=== PATIENT | male | born 1960 | race African-American/Black ===

== ENCOUNTER 2018-08-25 11:08 | Emergency (ER) | payer OTHER ==
[~2018-08-25] VITALS: Ht 190.5 cm; Wt 106.6 kg
[~2018-08-25 11:08] MED LIST: ATENOLOL; COLCHICINE0.6 M1 PO; IBUPROFEN600 MG ORAL; IMITREX25 MG PO; LISINOPRIL2.5 MG ORAL; VICODIN 5-3001 EACH ORAL
[2018-08-25] MEDS ORDERED: AUGMENTIN 875-1 EAC1 ORAL (11:38)
[2018-08-25] MEDS ORDERED: IBUPROFEN600 MG ORAL (11:38)
[2018-08-25 12:57] VITALS: BP 157/89
--- NOTE | 2018-08-25 14:28 | Emergency Room Report ---
History of Present Illness General Chief Complaint: Lower Extremity Injury Source: Patient Present Illness [facility] The patient 58-year-old male presented after increased discharge from his right foot. Patient prior history of chronic nonhealing ulcer. Patient had reportedly had previous to debridement. Patient had attempted to see is a train planner without any success. Patient had denies history of diabetes. Patient is currently a smoker. He denies any fever. Allergies: Coded Allergies: No Known Allergies (Unverified , 12/02/79) Patient History Social History: Reports: smoking Reviewed Nursing Documentation: PMH: Agreed; PSxH: Agreed Nursing Documentation-PMH Past Medical History: No History, Except For Hx Hypertension: Yes Review of Systems All Other Systems: negative except mentioned in HPI Physical Exam Vital Signs Date Time Temp Pulse Resp B/P (MAP) Pulse Ox O2 Delivery O2 Flow Rate FiO2 08/25/18 11:20 99.0 107 18 167/100 95 Room Air General Appearance: well appearing, no apparent distress, alert, GCS 15 Head: normocephalic, atraumatic ENT: hearing grossly normal, normal voice Neck: full range of motion, supple Respiratory: no respiratory distress, speaking full sentences Musculoskeletal: no calf tenderness Neurologic: normal gait Psychiatric: mood/affect normal Skin: other - plantar ulceration right foot, no erythema, pulse normal Medical Decision Making Diagnostic Impression: Primary Impression: Right foot infection ER Course Patient is a for foot ulcer. The differential diagnosis included was not limited to abscess, cellulitis, osteomyelitis among others. Patient has a benign exam and does not appear to require any further imaging or laboratory testing at this time. The patient is advised follow-up with his physician for wound recheck. Patient given prescription for oral antibiotics. The patient was advised to recheck if he began having increased fever discharge or other concerns. Last Vital Signs Date Time Temp Pulse Resp B/P (MAP) Pulse Ox O2 Delivery O2 Flow Rate FiO2 08/25/18 12:57 99.0 18 157/89 95 Room Air 08/25/18 11:20 107 Status: improved Disposition: HOME, SELF-CARE Condition: Stable Scripts Ibuprofen* (MOTRIN*) 600 Mg Tablet 600 MG ORAL Q8H PRN for For Pain, #30 TAB 0 Refills Prov: Jasson Rowan MD 08/25/18 Amoxicillin/Potassium Clav 875-125* (AUGMENTIN 875-125 TABLET*) 1 Each Tablet 1 TAB ORAL TWICE A DAY, #14 TAB Prov: Jasson Rowan MD 08/25/18 [facility]P) Patient Instructions: Skin Ulcer Jasson Rowan MD Aug 25, 2018 14:28
== END 2018-08-25 12:59 | disposition home or self-care (01) ==
LOC: EMR 11:57
DX: L97.518 Non-pressure chronic ulcer of other part of right foot with other specified severity (principal); Z72.0 Tobacco use
CPT/HCPCS: 99283

== ENCOUNTER 2018-10-14 03:47 | Emergency (ER) | payer OTHER ==
[~2018-10-14] VITALS: Ht 182.9 cm; Wt 104.3 kg
[~2018-10-14 03:47] MED LIST changes: +AUGMENTIN 875-1 EAC1 ORAL
--- NOTE | 2018-10-14 03:53 | Emergency Room Report ---
History of Present Illness General Chief Complaint: Altered Mental Status Source: Patient, Medical Record, EMS Present Illness HPI This is a 58-year-old male brought in by EMS for altered mental status. Family called 911 because he was out on the porch "tripping.". On arrival EMS that he was not responding. Here he admits to using "shroom." He has a history of PCP , cocaine, opiate abuse. Unable to get any other history on this patient because of his condition. He is very sleepy. Allergies: Coded Allergies: No Known Allergies (Unverified , 12/02/79) Patient History Past Medical History: see triage record, old chart reviewed Past Surgical History: other - Craniotomy Pertinent Family History: none Social History: Reports: smoking, alcohol use, drug use Immunizations: other Reviewed Nursing Documentation: PMH: Agreed; PSxH: Agreed Nursing Documentation-PMH Past Medical History: No History, Except For Hx Hypertension: Yes Hx Cancer: Yes - Liver CA Review of Systems All Other Systems: limited - Secondary to his condition Physical Exam Vital Signs Date Time Temp Pulse Resp B/P (MAP) Pulse Ox O2 Delivery O2 Flow Rate FiO2 10/14/18 03:40 99.1 100 20 162/102 96 Room Air vitals with high blood pressure Sp02 EP Interpretation: reviewed, normal General Appearance: well appearing, no apparent distress, Stupor Head: other - Craniotomy scar Eyes: bilateral eye other - pupils 2-3 mm and reactive ENT: hearing grossly normal, normal pharynx Neck: full range of motion, supple, no meningismus Respiratory: chest non-tender, lungs clear, normal breath sounds Cardiovascular #1: regular rate, rhythm, no murmur Gastrointestinal: normal bowel sounds, non tender, no mass, no organomegaly, no bruit, non-distended Musculoskeletal: back normal, normal range of motion Neurologic: grossly normal Skin: warm/dry Medical Decision Making Diagnostic Impression: Primary Impression: Altered mental status Qualified Codes: R41.82 - Altered mental status, unspecified Additional Impression: Substance abuse ER Course Patient with altered mental status secondary to drug abuse. He slowly waking up. No response to Narcan. No trauma or bleed. We'll discharge home once clinically sober. CT/MRI/US Diagnostic Results CT/MRI/US Diagnostic Results : Imaging Test Ordered: CT head Impression negative per radiologist Last Vital Signs Date Time Temp Pulse Resp B/P (MAP) Pulse Ox O2 Delivery O2 Flow Rate FiO2 10/14/18 03:40 99.1 100 20 162/102 96 Room Air Status: improved Disposition: HOME, SELF-CARE Condition: Stable Additional Instructions: Stop using drugs. Follow-up with rehabilitation within a week. Follow-up with your doctor in a week. Return if worse. Roby Valderrama MD Oct 14, 2018 03:53
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
[2018-10-14 04:00] VITALS: BP 162/102
[2018-10-14] MEDS ORDERED: Naloxone 1mg/ml 2ml IVP ONE (04:00)
--- NOTE | 2018-10-14 04:06 | NUR ---
ED Nurse Note: Narcan given, no acute change in LOC.
--- NOTE | 2018-10-14 04:44 | NUR ---
ED Nurse Note: Patient sleeping, snoring loudly. Patient going down for CT of the head.
[2018-10-14 05:03] VITALS: BP 162/98
--- NOTE | 2018-10-14 05:55 | Diagnostic Imaging Report ---
EXAM: CT Head Without Intravenous Contrast CLINICAL HISTORY: AMS TECHNIQUE: Axial computed tomography images of the head/brain without intravenous contrast. CTDI is 70.38 mGy and DLP is 1453 mGy-cm. One or more of the following dose reduction techniques were used: automated exposure control, adjustment of the mA and/or kV according to patient size, use of iterative reconstruction technique. COMPARISON: 10/16/15 FINDINGS: Artifacts: Motion artifact degrade image quality. Brain: No acute intracranial hemorrhage. No significant white matter disease. Midline shift: No midline shift. Ventricles: Unremarkable. No ventriculomegaly. Bones/joints: Stable postsurgical changes status post left frontal craniotomy. No acute fracture. Soft tissues: Unremarkable. Vasculature: Aneurysm coils creased streak artifact and limit evaluation. Sinuses: Mild mucosal thickening in the ethmoid sinuses. Mastoid air cells: Unremarkable as visualized. No mastoid effusion. IMPRESSION: No acute intracranial abnormality.
--- NOTE | 2018-10-14 06:03 | NUR ---
ED Nurse Note: Patient was arousable to voice, able to state his name, reported no pain at this time. Patient went back to sleep. Vss.
[2018-10-14 06:07] VITALS: BP 159/90
[2018-10-14 07:15] VITALS: BP 134/71
--- NOTE | 2018-10-14 07:23 | NUR ---
ED Nurse Note: Pt was [facility]. Pt AAO x 4 and verbalized address of his home. Pt is VSS and recieved discharge instruction. Pt verbalized understanding. Pt ambulated to the bathroom with stable gait prior to discharge and be discharged to home.
== END 2018-10-14 07:15 | disposition home or self-care (01) ==
LOC: EDBD 03:47 → EMR 03:56
DX: R41.82 Altered mental status, unspecified (principal); F16.10 Hallucinogen abuse, uncomplicated; I10 Essential (primary) hypertension; Z85.05 Personal history of malignant neoplasm of liver
CPT/HCPCS: 36415; 70450; 80307; 80329; 96374; 99284; J2310

== ENCOUNTER 2019-06-30 04:02 | Emergency (ER) | payer OTHER ==
[~2019-06-30] VITALS: Ht 188 cm; Wt 90.7 kg
--- NOTE | 2019-06-30 04:04 | NUR ---
ED Nurse Note: Pt brought in by ambulance [facility] from [facility], pt c/o 05/12 headache pain, denies trauma or N/V. Pt is A&Ox4, VSS
[2019-06-30 04:08] VITALS: BP 148/88
--- NOTE | 2019-06-30 04:08 | Emergency Room Report ---
History of Present Illness General Source: Patient Present Illness HPI Patient presents with complaints of headache Reports the headache came on progressively over the past day Denies any fevers or chills denies any neck pain denies any photophobia Denies any chest pain or shortness of breath Patient reports using cocaine earlier today Denies any focal weakness denies any recent trauma Allergies: Coded Allergies: No Known Allergies (Unverified , 12/02/79) Patient History Past Medical History: see triage record Reviewed Nursing Documentation: PMH: Agreed; PSxH: Agreed Nursing Documentation-PMH Hx Hypertension: Yes Hx Cancer: Yes - Liver CA Review of Systems All Other Systems: negative except mentioned in HPI Physical Exam 98% on room air which is normal Sp02 EP Interpretation: reviewed, normal General Appearance: well appearing, no apparent distress Head: normocephalic, atraumatic Eyes: bilateral eye PERRL, bilateral eye EOMI ENT: hearing grossly normal, normal pharynx, TMs + canals normal, uvula midline Neck: full range of motion, supple, no meningismus, no bony tend Respiratory: lungs clear, normal breath sounds, no rhonchi, no respiratory distress, no retraction, no accessory muscle use Cardiovascular #1: normal peripheral pulses, regular rate, rhythm, no edema, no gallop, no JVD, no murmur Gastrointestinal: normal bowel sounds, non tender, soft, no mass, no organomegaly, non-distended, no guarding, no hernia, no pulsatile mass, no rebound Genitourinary: no CVA tenderness Musculoskeletal: normal inspection Neurologic: oriented x3, responsive, taproom attendant III-XII nml as tested, motor strength/ tone normal, sensory intact Psychiatric: mood/affect normal Skin: no rash Lymphatic: normal inspection, no adenopathy Medical Decision Making Diagnostic Impression: Primary Impression: Headache ER Course Multiple differentials including but not limited to neurological, neurosurgical , infectious pathology entertained Patient appears calm and Appropriate upon arrival is provided with initial pain medication Patient slept comfortably for several hours continues not to be any signs of neurological deficit Or other acute presentation requiring further imaging or work-up patient is stable for close outpatient follow-up Status: improved Disposition: HOME, SELF-CARE Condition: Improved Additional Instructions: Patient is provided with the discharge instructions notified to follow up with primary doctor in the next 2-3 days otherwise return to the er with any worsening symptoms. Please note that this report is being documented using [employer] technology. This can lead to erroneous entry secondary to incorrect interpretation by the dictating instrument. Melvin Stephen DO Jun 30, 2019 04:07
[2019-06-30 05:57] VITALS: BP 148/88
--- NOTE | 2019-06-30 05:58 | NUR ---
ED Nurse Note: Pt cleared by health care Provider for discharge. DC instructions/prescription was given and explained to pt and verbalized understanding of teachings. All medical deviecs such as ID band removed. Pt is AAO x4, ambulatory and left with all personal belongings.
== END 2019-06-30 05:58 | disposition home or self-care (01) ==
LOC: EDBD 04:02 → EDUNIT# 04:02 → EMR 04:13
DX: R51 Headache (principal); I10 Essential (primary) hypertension; Z85.05 Personal history of malignant neoplasm of liver; F14.10 Cocaine abuse, uncomplicated
CPT/HCPCS: 99283

== ENCOUNTER 2019-10-08 13:05 | Emergency (ER) | payer OTHER ==
[~2019-10-08] VITALS: Ht 190.5 cm; Wt 102.1 kg
[2019-10-08 14:00] VITALS: BP 138/81
--- NOTE | 2019-10-08 14:05 | NUR ---
ED Nurse Note:pt. came with right foot chronic infection
[2019-10-08] MEDS ORDERED: AUGMENTIN 875-1 EAC1 ORAL (14:35)
--- NOTE | 2019-10-08 14:40 | NUR ---
ER DISCHARGE NOTE: Patient is cleared to be discharged per ERMD, pt is aox4, on room air, with stable vital signs. pt was given dc and prescription instructions, pt was able to verbalize understanding pt is able to ambulate with steady gait. pt took all belongings.
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
[2019-10-08 15:06] VITALS: BP 138/81
--- NOTE | 2019-10-08 22:28 | Emergency Room Report ---
History of Present Illness General Chief Complaint: General Complaint Source: Patient, Medical Record, PMD Present Illness HPI 59-year-old male presents ED for evaluation. Patient presenting for evaluation of right foot wound. History of foot drop and a wound to his right foot. Was recently discharged from [facility] with a wound VAC. States that due to his living situation he was unable to properly apply the wound VAC. Denies pain. Denies fevers or chills. Denies any drainage. No other aggravating relieving factors. Denies any other associated symptoms Allergies: Coded Allergies: No Known Allergies (Unverified , 12/02/79) Patient History Past Medical History: HTN, CVA/TIA, other - liver ca Pertinent Family History: none Social History: Denies: smoking, alcohol use, drug use Immunizations: UTD Reviewed Nursing Documentation: PMH: Agreed; PSxH: Agreed Nursing Documentation-PMH Past Medical History: No History, Except For Hx Hypertension: Yes Hx Cancer: Yes - Liver CA Hx Cerebrovascular Accident: Yes - Brain aneurysm; Brain surgery 2011 Hx Seizures: Yes Review of Systems All Other Systems: negative except mentioned in HPI Physical Exam Vital Signs Date Time Temp Pulse Resp B/P (MAP) Pulse Ox O2 Delivery O2 Flow Rate FiO2 10/08/19 13:06 98.1 103 16 138/81 (100) 95 Room Air Sp02 EP Interpretation: reviewed, normal General Appearance: no apparent distress, alert, GCS 15, non-toxic Head: normocephalic Eyes: bilateral eye normal inspection, bilateral eye PERRL ENT: normal ENT inspection Neck: normal inspection Respiratory: normal inspection Cardiovascular #1: normal inspection Gastrointestinal: normal inspection Rectal: deferred Genitourinary: no CVA tenderness Musculoskeletal: back normal, normal range of motion, non-tender Neurologic: alert, motor strength/tone normal, oriented x3, sensory intact, responsive, speech normal Psychiatric: normal inspection Skin: other - healing wound to plantar aspect R foot. no erythema/induration. no drainage Lymphatic: normal inspection Medical Decision Making Diagnostic Impression: Primary Impression: Wound of foot ER Course Hospital Course 59year-old M presents to ED for wound check. wound to R foot Clinical course Patient placed on stretcher. Initial history physical exam reveals middle-aged male in no acute distress on exam there is a healing wound to the bottom of his right foot. There do appear to be sutures there. Dry. No erythema or induration. Evaluated by Dr. Galeas at bedside. He agrees that this does not appear infected or does not require any acute intervention. Recommends close follow- up with his PMD. safe for discharge for close outpatient follow-up Diagnosis - wound of foot Stable and discharged to home with Rx Augmentin. Followup with PMD. Return to ED if any signs of infection develop Last Vital Signs Date Time Temp Pulse Resp B/P (MAP) Pulse Ox O2 Delivery O2 Flow Rate FiO2 10/08/19 15:06 98.1 16 138/81 95 Room Air 10/08/19 13:06 103 Status: improved Disposition: HOME, SELF-CARE Condition: Stable Scripts Amoxicillin/Potassium Clav 875-125* (AUGMENTIN 875-125 TABLET*) 1 Each Tablet 1 TAB ORAL TWICE A DAY, #14 TAB Prov: Mani Lane MD 10/08/19 Referrals: [facility]P) Porfirio Sainz DPЕкатерина [facility] Open 24 hour /7 days a week by Appointment Only [address] [facility] [id number] Patient Instructions: Wound Care Mani Lane MD Oct 08, 2019 22:28
== END 2019-10-08 14:40 | disposition home or self-care (01) ==
LOC: EMR 14:32
DX: S91.301A Unspecified open wound, right foot, initial encounter (principal); X58.XXXA Exposure to other specified factors, initial encounter; Y92.9 Unspecified place or not applicable; G40.909 Epilepsy, unspecified, not intractable, without status epilepticus; I10 Essential (primary) hypertension; Z85.05 Personal history of malignant neoplasm of liver
CPT/HCPCS: 99282